=== PATIENT | male | born 1995 | race Caucasian/White ===

== ENCOUNTER → 2018-02-13 19:04 | Emergency (ER) | payer OTHER ==
[~2018-02-13 19:04] MED LIST: Acetaminophen TAB* 325 MG PO ONE; Ibuprofen TAB* 800 MG PO ONE; NS 0.9% 1000 ML*IV.FLUID IV ONE
[2018-02-13 21:03] LABS: ABS Basophils 0 10^3/ul (0-0.2); ABS Eosinophils 0 10^3/ul (0-0.6); ABS Lymphocytes 0.7 10^3/ul (1.0-4.8); ABS Monocytes 0.9 10^3/ul (0-0.8); ABS Neutrophils 6.3 10^3/ul (1.5-7.7); ABS Nucleated RBC 0 10^3/ul; Eosinophil % 0 % (0-6); Hematocrit 42 % (42-52); Hemoglobin 14.6 g/dl (14.0-18.0); Lymphocyte % 8.5 % (25-47); Mean Corpuscular HGB Conc 35 g/dl (31-36); Mean Corpuscular Hemoglobin 28 pg (27-31); Mean Corpuscular Volume 82 fL (80-94); Mean Platelet Volume 8 um3 (7.4-10.4); Nucleated Red Blood Cells % 0; Platelet Count 192 10^3/ul (150-450); Red Blood Count 5.15 10^6/ul (4.0-5.4); Red Cell Distribution Width 13 % (10.5-15); White Blood Count 7.9 10^3/ul (3.5-10.8)
[2018-02-13 21:17] LABS: EGFR Non-African American 97.1 (>60)
--- NOTE | 2018-02-13 21:32 | RAD ---
INDICATION: Fever and headache x2 days COMPARISON: None. TECHNIQUE: Single AP portable view of the chest was obtained. FINDINGS: Image quality is compromised due to the relative inferiority of a portable chest x-ray. The heart and mediastinum exhibit normal size and contour. The lungs are grossly clear. There is no evidence of a large pleural effusion. Visualized bones are normal for the patient's age. IMPRESSION: No radiographic evidence for acute cardiopulmonary abnormality on this portable chest x-ray.
[2018-02-13 21:41] VITALS: BP 111/61
--- NOTE | 2018-02-13 21:48 | ED ---
Bernard Morelos Julia, scribed for Chaparrita Arteaga MD on 02/13/18 at 1931 . Influenza-Like Illness - HPI Summary HPI Summary: This patient is a 22 year old M presenting to [facility] with a chief complaint of flu like symptoms for the past two days. Patient reports weakness, headache, sore throat, joint pain, sweats, and chills. Patient denies vomiting, SOB, and coughing. The patient rates the pain 6/10 in severity. Symptoms Patient denies new medication use. - History of Current Complaint Chief Complaint: EDHeadache Time Seen by Provider: 02/13/18 19:20 Hx Obtained From: Patient Onset/Duration: Lasting Days, Still Present Associated Signs & Symptoms: Myalgia, Sore Throat, Headache - Allergy/Home Medications Allergies/Adverse Reactions: Allergies Allergy/AdvReac Type Severity Reaction Status Date / Time No Known Allergies Allergy Verified 02/13/18 19:09 PMH/Surg Hx/FS Hx/Imm Hx Opthamlomology History: Denies: Hx Legally Blind EENT History: Denies: Hx Deafness Infectious Disease History: No Infectious Disease History: Denies: Traveled Outside the [place] in Last 30 Days - Family History Known Family History: Positive: Cardiac Disease - grandparents, Diabetes - grandparent, Other - skin CA - aunt - Social History Occupation: Student Review of Systems Positive: Chills, Fatigue, Skin Diaphoresis Positive: Sore Throat Negative: Shortness Of Breath, Cough Negative: Vomiting Positive: Arthralgia Positive: Headache All Other Systems Reviewed And Are Negative: Yes Physical Exam - Summary Physical Exam Summary: VITAL SIGNS: Reviewed. GENERAL: Patient is a well-developed and nourished male who is lying comfortable in the stretcher. Patient is not in any acute respiratory distress. HEAD AND FACE: No signs of trauma. No ecchymosis, hematomas or skull depressions. No sinus tenderness. EYES: PERRLA, EOMI x 2, No injected conjunctiva, no nystagmus. EARS: Hearing grossly intact. Ear canals and tympanic membranes are within normal limits. MOUTH: Oropharynx within normal limits. NECK: Supple, trachea is midline, no adenopathy, no JVD, no carotid bruit, no c- spine tenderness, neck with full ROM. CHEST: Symmetric, n SKIN: Dry and warm, no tenderness at palpation LUNGS: Clear to auscultation bilaterally. No wheezing or crackles. CVS: Regular rate and rhythm, S1 and S2 present, no murmurs or gallops appreciated. ABDOMEN: Soft, non-tender. No signs of distention. No rebound no guarding, and no masses palpated. Bowel sounds are normal. EXTREMITIES: FROM in all major joints, no edema, no cyanosis or clubbing. NEURO: Alert and oriented x 3. No acute neurological deficits. Speech is normal and follows commands. Triage Information Reviewed: Yes Vital Signs On Initial Exam: Initial Vitals Temp Pulse Resp BP Pulse Ox 100.3 F 100 15 124/80 95 02/13/18 19:07 02/13/18 19:07 02/13/18 19:07 02/13/18 19:07 02/13/18 19:07 Vital Signs Reviewed: Yes Diagnostics - Vital Signs Vital Signs Temp Pulse Resp BP Pulse Ox 02/13/18 19:07 100.3 F 100 15 124/80 95 - Laboratory Result Diagrams: 02/13/18 20:40 02/13/18 20:40 Lab Statement: Any lab studies that have been ordered have been reviewed, and results considered in the medical decision making process. - Radiology CXR Radiology Interpretation Completed By: ED Physician - No acute pathology. Re-Evaluation - Re-Evaluation 1 Re-Evaluation Time: 21:36 Comment: Discussed results with patient. Patient will be discharged. Flu Symptom Course/Dx - Course Course Of Treatment: Patient presents with weakness, headache, sore throat, joint pain, sweats, and chills for the past two days. Patient is given Tylenol and Motrin. Influenza test is negative. Strep test is negative. CXR reveals no acute pathology. Bloodwork is unremarkable. - Diagnoses Provider Diagnoses: Viral syndrome Discharge - Discharge Plan Condition: Stable Disposition: HOME Prescriptions: Ibuprofen TAB* [Motrin TAB* 800 MG] 800 mg PO Q6H PRN #30 tab PRN Reason: Fever/Pain Patient Education Materials: Viral Syndrome (ED) Forms: *Work Release Referrals: [facility] [Primary Care Provider] - If Needed Additional Instructions: RETURN TO THE EMERGENCY DEPARTMENT FOR CHANGING OR WORSENING SYMPTOMS. The documentation as recorded by the Bernard loza Julia accurately reflects the service I personally performed and the decisions made by , Chaparrita Arteaga MD.
== END | disposition home or self-care (01) ==
LOC: ED 19:04
DX: R53.83 Other fatigue (principal); J02.9 Acute pharyngitis, unspecified; R51 Headache; B34.9 Viral infection, unspecified
CPT/HCPCS: 36415; 71045; 80053; 83605; 85025; 87040; 87502; 87651; 99283; A9270-GY